=== PATIENT | male | born 1955 ===

== ENCOUNTER 2018-06-30 07:54 | Emergency (ER) | payer OTHER ==
[~2018-06-30] VITALS: Ht 193 cm; Wt 138.3 kg
[2018-06-30] MEDS ORDERED: ATORVASTATIN CA20 MG (08:09)
[2018-06-30] MEDS ORDERED: CYCLOBENZAPRINE10 MG (08:09)
[2018-06-30] MEDS ORDERED: PROVENTIL HFA6.7 GM (08:09)
[2018-06-30] MEDS ORDERED: COZAAR25 MG (08:10)
[2018-06-30] MEDS ORDERED: LASIX40 MG (08:10)
[2018-06-30] MEDS ORDERED: NEURONTIN300 MG (08:10)
[2018-06-30] MEDS ORDERED: MYFORTIC360 MG (08:10)
[2018-06-30] MEDS ORDERED: FLUOROPLEX30 GM (08:10)
[2018-06-30] MEDS ORDERED: RAPAMUNE0.5 MG (08:11)
[2018-06-30] MEDS ORDERED: OMEPRAZOLE20 MG (08:11)
[2018-06-30] MEDS ORDERED: CHOLECALCIFEROL1 GM (08:11)
[2018-06-30] MEDS ORDERED: CIPRO250 MG PO (11:36)
== END 2018-06-30 12:24 | disposition home or self-care (01) ==
LOC: ER 07:54
DX: N39.0 Urinary tract infection, site not specified (principal); N20.0 Calculus of kidney